=== PATIENT | male | born 1985 | race Caucasian/White ===

== ENCOUNTER 2023-12-14 08:04 | Emergency (ER) | payer OTHER ==
[2023-12-14 08:30] VITALS: TEMP 99.3
[2023-12-14] MEDS ORDERED: BABY ASPIRIN 81 MG CHEW ONE (09:04)
[2023-12-14] MEDS: BABY ASPIRIN 81 MG CHEW PO ONE (09:05)
[2023-12-14 09:32] LABS: Absolute Neutrophil Ct (ANC) 5.26 x10^3/uL (1.4-6.9); BASOPHIL % 0.8 % (0.0-0.4); Basophil (Absolute #) 0.06 x10^3/uL (0-0.4); Eosinophil % 3.7 % (0.00-5.0); Eosinophil (Absolute #) 0.28 x10^3/uL (0-0.5); Hematocrit 44.4 % (42-50); Hemoglobin 15.1 g/dL (12.5-18.0); IMMATURE GRAN # 0.03 x10^3u/L (0.00-0.03); IMMATURE GRAN % 0.4 % (0.00-0.4); Lymphocyte (Absolute #) 1.46 x10^3/uL (1.0-4.6); Lymphocytes % 19.4 % (24.0-44.0); Mean Cell Volume 85.1 fL (78-100); Mean Corpuscular Hemoglobin 28.9 pg (26-32); Mean Platelet Volume 8.6 fL (7.5-11.0); Monocyte (Absolute #) 0.43 x10^3/uL (0.0-1.3); Monocytes % 5.7 % (0.0-12.0); Platelet Count 356 x10^3/uL (150-450); Red Blood Count 5.22 x10^6/uL (4.1-5.6); Red Cell Distribution Width 12.5 % (11.5-14.0); White Blood Count 7.5 x10^3/uL (4.0-10.5)
--- NOTE | 2023-12-14 09:40 | XRAY ---
Indication: Chest pain. Comparison: April 10, 2014 Portable chest again demonstrates normal heart, lungs, and bony thorax.
--- NOTE | 2023-12-14 09:56 | XRAY ---
Indication: Left arm heaviness/tingling 5 days. Multiple contiguous axial images obtained through the head without contrast. Comparison: None Normal appearing brain parenchyma, ventricles, and bony calvarium. Visualized paranasal sinuses and mastoid air cells are clear. Impression: Normal CT head without contrast exam.
--- NOTE | 2023-12-14 09:58 | XRAY ---
Indication: Left arm heaviness/tingling. Multiple contiguous axial images obtained through the cervical spine. Sagittal and coronal reformatted images obtained. Comparison: None Axial images negative for acute fracture, suspicious bony lesions, or spinal canal stenosis. Facets are symmetric. Sagittal and coronal reformatted images demonstrates lordotic reversal centered at C4, positional versus paraspinal spasm. Vertebral body heights/disc spaces maintained. No compression fracture, subluxation, or jumped facet. Normal appearing craniocervical junction. Visualized noncontrasted soft tissues demonstrates scattered centimeter/subcentimeter cervical nodes bilaterally none pathologically enlarged. Lung apices are clear. Impression: Cervical lordotic reversal. Remaining CT cervical spine is negative.
[2023-12-14 10:04] LABS: ALBUMIN 4.5 g/dL (3.5-5.0); ANION GAP 14.5 MEQ/L (5-15); Calcium 9.3 mg/dL (8.4-10.2); Creatinine 1 0.8 mg/dL (0.66-1.25); EST GLOMERULAR FILTRATION RATE 117.6 ML/MIN; Total Protein 7.7 g/dL (6.3-8.2)
[2023-12-14 10:53] VITALS: PULSE 74
--- NOTE | 2023-12-14 11:58 | ERPHSYRPT ---
- History of Present Illness Time Seen by Provider: 12/14/23 08:54 Source: patient Exam Limitations: no limitations Patient Subjective Stated Complaint: Pt states that for a couple of days his left arm has been hurting and feeling numb off and on, the pain radiates to the top of his shoulder, pt has been getting SOB and fatigued that has been going on for a bit Triage Nursing Assessment: Pt brought self to the ER, vitals wnl, rates arm/shoulder pain as 2/10, pulses normal, skin n/w/d, denies chest pain today but does get it every now and then, walked into the ER with a stable gait, no difficulties breathing, doesn't appear to be in any distress Physician History: 38 years old male presented in the ER with complaint of left arm heaviness/pain off and on mild to moderate with radiation to the left shoulder and neck and feeling of numbness distal to the elbow at times. Patient reports it happens usually whenever he is holding we will during driving or doing some hand-held work above his head where he gets quickly tired and tingling sensation comes. He is also complaining of off-and-on left anterior chest pain which last for couple of seconds and improves on its own. Patient reported whenever it comes o n it makes him short of breath for a second as well. No palpitations/racing of heart. No history of coronary artery disease. Does report having some neck pain at times. No weakness in the left upper extremity. Allergies/Adverse Reactions: cephradine [From [facility]] Allergy (Verified 12/14/23 08:30) Home Medications: lisinopriL [Zestril] 5 mg PO DAILY 12/14/23 [History] Hx Influenza Vaccination/Date Given: No Hx Pneumococcal Vaccination/Date Given: No Travel Risk - International Travel Have you traveled outside of the country in past 3 weeks: No - Emerging Infectious Disease Are you exhibiting symptoms associated with any current EIDs: No - Review of Systems Constitutional: No Symptoms Eyes: No Symptoms Ears, Nose, & Throat: No Symptoms Respiratory: No Symptoms Cardiac: Chest Pain Abdominal/Gastrointestinal: No Symptoms Genitourinary Symptoms: No Symptoms Musculoskeletal: Neck Pain, Myalgias Skin: No Symptoms Neurological: Sensory Changes Psychological: No Symptoms Endocrine: No Symptoms Hematologic/Lymphatic: No Symptoms Immunological/Allergic: No Symptoms - Past Medical History Pertinent Past Medical History: Yes Cardiac History: Hypertension Musculoskeletal History: Fractures Other Medical History: sleep apnea, left arm fracture when he was 6, broke right index finger - Past Surgical History Past Surgical History: Yes - Social History Smoking Status: Current some day smoker Exposure to second hand smoke: Yes Drug Use: none - Nursing Vital Signs Nursing Vital Signs: Initial Vital Signs Temperature 99.3 F 12/14/23 08:21 Pulse Rate 88 12/14/23 08:21 Respiratory Rate 24 12/14/23 08:21 Blood Pressure 131/92 12/14/23 08:21 O2 Sat by Pulse Oximetry 94 L 12/14/23 08:21 Pain Scale Pain Intensity 2 - Physical Exam General Appearance: no apparent distress, alert Eye Exam: PERRL/EOMI Ears, Nose, Throat Exam: normal ENT inspection Neck Exam: normal inspection, non-tender, supple, full range of motion Respiratory Exam: normal breath sounds, lungs clear Cardiovascular Exam: regular rate/rhythm, normal heart sounds Gastrointestinal/Abdomen Exam: soft, normal bowel sounds, No tenderness Extremity Exam: normal inspection, normal range of motion Neurologic Exam: alert, oriented x 3, cooperative, hogshead salvage II-XII nml as tested, normal mood/affect, nml cerebellar function, nml station & gait, sensation nml, other (2+ symmetric reflexes in upper and lower extremities), No motor deficits Skin Exam: normal color SpO2 Interpretation: normal SpO2: 94 O2 Delivery: Room Air - Course EKG Interpreted by Me: RATE ([id number]), Sinus Rhythm, NORMAL AXIS, NORMAL INTERVALS, NORMAL QRS Ordered Tests: Active Orders 24 hr Category Date Time Status Major Assembly Inspector STAT Care 12/14/23 08:55 Completed EKG-ER Only STAT Care 12/14/23 08:55 Completed IV Insertion STAT Care 12/14/23 08:55 Completed CERVICAL SPINE WO CONTRAST [CT] Stat Exams 12/14/23 08:55 Completed CHEST 1 VIEW (PORTABLE) Stat Exams 12/14/23 08:55 Completed HEAD WITHOUT CONTRAST [CT] Stat Exams 12/14/23 08:55 Completed CBC W DIFF Stat Lab 12/14/23 09:25 Completed CK-Creatinine Phosphokinase Stat Lab 12/14/23 09:25 Completed CMP Stat Lab 12/14/23 09:25 Completed TROPONIN Q4H Lab 12/14/23 09:25 Completed TROPONIN Q4H Lab 12/14/23 11:30 Completed Medication Summary Discontinued Medications Generic Name Dose Route Start Last Admin Trade Name Skyler PRN Reason Stop Dose Admin Aspirin 324 mg 12/14/23 08:55 12/14/23 09:05 Aspirin 81 Mg Tab.Chew PO 12/14/23 08:56 324 mg STAT ONE Administration Aspirin Confirm 12/14/23 09:04 Aspirin 81 Mg Tab.Chew Administered 12/14/23 09:05 Dose 324 mg .ROUTE .STK-MED ONE Lab/Rad Data: Laboratory Result Diagrams 12/14/23 09:25 12/14/23 09:25 Laboratory Results 12/14/23 12/14/23 12/14/23 Range/Units 11:30 09:25 09:25 WBC (4.0-10.5) x10^3/uL RBC (4.1-5.6) x10^6/uL Hgb (12.5-18.0) g/dL Hct (42-50) % MCV (78-100) fL MCH (26-32) pg MCHC (32-36) g/dL RDW (11.5-14.0) % Plt Count (150-450) x10^3/uL MPV (7.5-11.0) fL Gran % (36.0-66.0) % Immature Gran % (Auto) (0.00-0.4) % Nucleat RBC Rel Count (0.00-0.1) % Eos # (Auto) (0-0.5) x10^3/uL Immature Gran # (Auto) (0.00-0.03) x10^3u/L Absolute Lymphs (auto) (1.0-4.6) x10^3/uL Absolute Monos (auto) (0.0-1.3) x10^3/uL Absolute Nucleated RBC (0.00-0.01) x10^3u/L Lymphocytes % (24.0-44.0) % Monocytes % (0.0-12.0) % Eosinophils % (0.00-5.0) % Basophils % (0.0-0.4) % Absolute Granulocytes (1.4-6.9) x10^3/uL Basophils # (0-0.4) x10^3/uL Sodium 140 (135-145) mmol/L Potassium 4.0 (3.5-5.1) mmol/L Chloride 106 (98-107) mmol/L Carbon Dioxide 23 (22-30) mmol/L Anion Gap 14.5 (5-15) MEQ/L BUN 13 (9-20) mg/dL Creatinine 0.80 (0.66-1.25) mg/dL Estimated GFR 117.6 ML/MIN Glucose 97 (74-106) mg/dL Calcium 9.3 (8.4-10.2) mg/dL Total Bilirubin 1.00 (0.2-1.3) mg/dL AST 23 (17-59) U/L ALT 29 (0-50) U/L Alkaline Phosphatase 81 (38-126) U/L Creatine Kinase 94 (55-170) U/L Troponin I < 0.012 < 0.012 (0.000-0.033) ng/mL Serum Total Protein 7.7 (6.3-8.2) g/dL Albumin 4.5 (3.5-5.0) g/dL 12/14/23 Range/Units 09:25 WBC 7.5 (4.0-10.5) x10^3/uL RBC 5.22 (4.1-5.6) x10^6/uL Hgb 15.1 (12.5-18.0) g/dL Hct 44.4 (42-50) % MCV 85.1 (78-100) fL MCH 28.9 (26-32) pg MCHC 34.0 (32-36) g/dL RDW 12.5 (11.5-14.0) % Plt Count 356 (150-450) x10^3/uL MPV 8.6 (7.5-11.0) fL Gran % 70.0 H (36.0-66.0) % Immature Gran % (Auto) 0.4 (0.00-0.4) % Nucleat RBC Rel Count 0.0 (0.00-0.1) % Eos # (Auto) 0.28 (0-0.5) x10^3/uL Immature Gran # (Auto) 0.03 (0.00-0.03) x10^3u/L Absolute Lymphs (auto) 1.46 (1.0-4.6) x10^3/uL Absolute Monos (auto) 0.43 (0.0-1.3) x10^3/uL Absolute Nucleated RBC 0.00 (0.00-0.01) x10^3u/L Lymphocytes % 19.4 L (24.0-44.0) % Monocytes % 5.7 (0.0-12.0) % Eosinophils % 3.7 (0.00-5.0) % Basophils % 0.8 (0.0-0.4) % Absolute Granulocytes 5.26 (1.4-6.9) x10^3/uL Basophils # 0.06 (0-0.4) x10^3/uL Sodium (135-145) mmol/L Potassium (3.5-5.1) mmol/L Chloride (98-107) mmol/L Carbon Dioxide (22-30) mmol/L Anion Gap (5-15) MEQ/L BUN (9-20) mg/dL Creatinine (0.66-1.25) mg/dL Estimated GFR ML/MIN Glucose (74-106) mg/dL Calcium (8.4-10.2) mg/dL Total Bilirubin (0.2-1.3) mg/dL AST (17-59) U/L ALT (0-50) U/L Alkaline Phosphatase (38-126) U/L Creatine Kinase (55-170) U/L Troponin I (0.000-0.033) ng/mL Serum Total Protein (6.3-8.2) g/dL Albumin (3.5-5.0) g/dL - Progress Progress: improved Progress Note: 12/14/23 11:54 38 years old is evaluated for left arm heaviness, distal numbness and tingling sensation. Patient symptoms are reproducible with movements and holding left upper extremity in a certain position and doing certain activities. I did not appreciate any neurodeficit in the left upper extremity. Also has some element of radiculopathy. EKG is normal sinus rhythm with no acute ischemic changes. Chest x-ray negative. Negative troponins. Chemistries unremarkable. Obtain CT head and cervical spine which are negative for any acute finding of stroke, fracture or subluxations but did show some muscle spasm in the neck. With his left forearm and hand symptoms could have some element of carpal tunnel impingement at the level of elbow. Recommended outpatient follow-up. I do not think patient needs second troponin and his pain is not very typical of cardiac etiology and last for only 1 to 2 seconds. I would give him diclofenac and muscle relaxant like Robaxin to go home and outpatient follow-up recommended. Discussed signs symptoms of worsening needing return to ER which he seems understanding. Counseled pt/family regarding: lab results, diagnosis, need for follow-up, rad results Medical Desision Making - Diagnostic Testing Diagnostic test were ordered, analyzed, and reviewed by me: Yes Radiological Interpretation: Reviewed by me - Risk of complications The pt has a mod risk of morbidity or mortality based on: Need for prescription drug management - Departure Departure Disposition: Home Clinical Impression: Cervicalgia, Atypical chest pain, Arm pain Condition: Stable Critical Care Time: No Referrals: BROOKE FULLER, PECAN MALLOW DIPPER [Primary Care Provider] - Follow up with PCP 1 day Instructions: Angina (DC), Generalized Neck Pain (DC) Additional Instructions: Take ibuprofen/Robaxin as recommended. Follow-up with primary care for reevaluation and may need referral for carpal tunnel evaluation. Return to ER f or worsening chest pain palpitations or if having shortness of breath. Prescriptions: Diclofenac Sodium 50 mg PO TID PRN 7 Days #20 tab PRN Reason: Pain Methocarbamol [Robaxin] 750 mg PO QID 10 Days #30 tablet
[2023-12-14 12:02] VITALS: BP 118/78; RESP 17
[2023-12-14 12:31] VITALS: O2SAT 94
== END 2023-12-14 12:07 | disposition home or self-care (01) ==
LOC: ED 08:04
DX: M54.2 Cervicalgia (principal); R07.89 Other chest pain; M79.602 Pain in left arm; I10 Essential (primary) hypertension; Z79.899 Other long term (current) drug therapy; Z72.0 Tobacco use
CPT/HCPCS: 36415; 70450; 71045; 72125; 80053; 82550; 84484; 85025; 93005; 93041; 99284; A9270-GY

== ENCOUNTER 2024-09-06 05:50 | Day surgery (SDC) | payer OTHER ==
[2024-09-06] MEDS ORDERED: Lactated Ringers 1,000 ML IV ONE (05:57)
[2024-09-06] MEDS ORDERED: celeBREX 100 MG ONE (05:57)
[2024-09-06] MEDS ORDERED: Decadron 4 MG ONE (05:57)
[2024-09-06] MEDS ORDERED: CLINDAMYCIN-D5W 900 MG/50 ML*** 900 MG/50 ML BAG IV ONE (05:57)
[2024-09-06] MEDS ORDERED: NEURONTIN ONE (05:57)
[2024-09-06] MEDS ORDERED: TYLENOL EXTRA STRENGTH 500 MG ONE (05:57)
[2024-09-06] MEDS: Decadron 4 MG PO ONE (06:11)
[2024-09-06] MEDS: celeBREX 100 MG PO ONE (06:11)
[2024-09-06] MEDS: TYLENOL EXTRA STRENGTH 500 MG PO ONE (06:11)
[2024-09-06] MEDS: Lactated Ringers 1,000 ML IV SCH (06:11)
[2024-09-06] MEDS: NEURONTIN PO ONE (06:11)
[2024-09-06] MEDS: CLINDAMYCIN-D5W 900 MG/50 ML*** 900 MG/50 ML BAG IV ONE (06:11)
[2024-09-06 06:48] LABS: Absolute Neutrophil Ct (ANC) 4.69 x10^3/uL (1.78-5.38); BASOPHIL % 1.1 % (0.2-1.2); Basophil (Absolute #) 0.08 x10^3/uL (0.01-0.08); Eosinophil % 4.8 % (0.8-7.0); Eosinophil (Absolute #) 0.36 x10^3/uL (0.04-0.54); Hemoglobin 15.3 g/dL (13.7-17.5); IMMATURE GRAN # 0.05 x10^3u/L (0.001-0.031); IMMATURE GRAN % 0.7 % (0.001-0.429); Lymphocyte (Absolute #) 1.75 x10^3/uL (1.32-3.57); Lymphocytes % 23.5 % (21.8-53.1); Mean Cell Volume 85.2 fL (79.0-92.2); Mean Platelet Volume 8.4 fL (9.4-12.4); Monocyte (Absolute #) 0.52 x10^3/uL (0.30-0.82); Neutrophil % 62.9 % (34.0-67.9); Platelet Count 345 x10^3/uL (163-337); Red Blood Count 5.28 x10^6/uL (4.63-6.08); Red Cell Distribution Width 12.4 % (11.6-14.4); White Blood Count 7.5 x10^3/uL (4.23-9.07)
[2024-09-06 07:01] LABS: ANION GAP 12.4 MEQ/L (5-15); Calcium 9.2 mg/dL (8.4-10.2); Creatinine 1 0.98 mg/dL (0.66-1.25); EST GLOMERULAR FILTRATION RATE 101.9 ML/MIN; Potassium 4.1 mmol/L (3.5-5.1)
[2024-09-06] MEDS ORDERED: MARCAINE 0.5%-EPI 1:200,000 VL IJ ONE (07:15)
[2024-09-06] MEDS ORDERED: Versed 2 MG/2 ML Injection ONE (07:39)
[2024-09-06] MEDS ORDERED: ROCURONIUM BROMIDE IV ONE (07:39)
[2024-09-06] MEDS ORDERED: SUBLIMAZE 100 MCG/2 ML ONE ×2 (07:39→08:27)
[2024-09-06] MEDS ORDERED: BRIDION 200MG/2ML IV ONE (08:38)
[2024-09-06] MEDS ORDERED: Zofran 4 MG/2 ML VIAL ONE (08:38)
[2024-09-06] MEDS ORDERED: TORAdol 30 mg Injection ONE (08:38)
[2024-09-06 09:49] VITALS: RESP 16
[2024-09-06 10:13] VITALS: BP 116/79; PULSE 83; TEMP 97.6; O2SAT 94
--- NOTE | 2024-09-07 20:26 | OP ---
SURGERY DATE/TIME: 09/06/2024 [id number] PREOPERATIVE DIAGNOSIS: Torn right medial meniscus. POSTOPERATIVE DIAGNOSIS: Torn right medial meniscus. PROCEDURE: Arthroscopy of the right knee with partial medial meniscectomy. SURGEON: Dain Valdovinos II, DO. ANESTHESIA: General. DESCRIPTION OF PROCEDURE AND FINDINGS: The patient was identified and informed consent was obtained. The patient was taken to the operative suite, placed in supine position on the operating table where the general anesthetic was administered. Once an appropriate level of anesthesia had been obtained, a tourniquet was placed high on the right thigh. The right lower extremity was placed in a knee simmons, prepped and draped in the usual sterile fashion. A standard time-out was taken. At this point, the leg was exsanguinated and tourniquet elevated to 350 mmHg. A #11 blade was utilized to create a superomedial portal. Trocar and cannula were placed in the joint. The joint was distended with the arthroscopic pump. An 11 blade was utilized to create an inferolateral portal and the arthroscope was placed in through a cannula. An 18-gauge spinal needle identified the level for the inferomedial portal which also was created with an 11 blade. The knee was inspected in a systematic fashion beginning in the suprapatellar pouch where there were no loose bodies or synovial hypertrophy. The gutters were inspected, no loose bodies or synovial hypertrophy. The undersurface of the patella had no chondromalacia nor to the trochlear groove, and the patella was seated nicely within the groove in about 30 degrees of flexion. The scope was placed into the medial compartment where a tear involving the middle and posterior horns of the medial meniscus was encountered. It had a horizontal cleavage as well as flap component. The meniscal tear was resected with the handheld biting instruments and then shaved to a smooth transition with the full-radius shaver. Femoral condyle and tibial plateau had no degenerative changes or chondromalacia noted. Intercondylar notch region was inspected. The anterior cruciate ligament was noted to be intact without any evidence of attenuation or tears. The scope was placed in the lateral compartment where the lateral meniscus was probed throughout its entirety and noted to be intact. At this point, the knee was then copiously irrigated and reinspected. No further pathology identified. The instrumentation was removed, and the portal sites were closed with interrupted 4-0 nylon sutures. The knee was infiltrated with 30 mL of 0.25% Marcaine with epinephrine. Adaptics, 4 x 4's, and a standard postop arthroscopy dressing applied. The patient was transferred to the cart and taken to the recovery room in satisfactory condition having tolerated the procedure well.
== END 2024-09-06 10:17 | disposition home or self-care (01) ==
LOC: SDC 05:50
PROVIDERS: ATTEND Orthopaedic Surgery
DX: S83.241D Other tear of medial meniscus, current injury, right knee, subsequent encounter (principal); M25.561 Pain in right knee
CPT/HCPCS: 29881; 36415; 80048; 85025; 93005; J1885; J2250; J2405; J2704; J3010; A9270-GY